=== PATIENT | male | born 1965 | race Caucasian/White ===

== ENCOUNTER 2020-10-05 10:45 | Emergency (ER) | payer OTHER ==
[~2020-10-05 10:45] MED LIST: ACETAMINOPHEN325 MG PO; ASPIRIN CHEWABL81 MG PO; CLARITIN10 MG PO
[2020-10-05 11:12] LABS: BASOPHIL 0.6 % (0-2); EOSINOPHIL 2.2 % (0-5); HCT 43.6 % (42.0-52.0); LYMPHOCYTE 35.7 % (15-48); MCH 30.9 pg (25.0-31.0); MCHC 34.4 g/dL (32.0-36.0); MCV 89.9 fL (78.0-100.0); MPV 9.1 fL (6.0-9.5); NEUTROPHIL 54.3 % (41-80); NRBC 0; PLT 237 K/uL (150-400); RBC 4.85 M/uL (4.70-6.00)
[2020-10-05 11:29] LABS: INR 1.03 (0.9-1.2); PROTHROMBIN TIME 12.8 SECONDS (11.4-13.6); PTT 27.4 SECONDS (22.2-34.7)
[2020-10-05 11:52] LABS: ALBUMIN 3.7 g/dL (3.4-5.0); BILIRUBIN - TOTAL 0.5 mg/dL (0.2-1.0); BUN/CREAT RATIO (CALC) 12.3 RATIO; CREATININE 1.06 mg/dL (0.67-1.17); GLOBULIN (CALCULATION) 3.1 g/dL; POTASSIUM 4.5 mmol/L (3.5-5.1); TOTAL PROTEIN 6.8 g/dL (6.4-8.2)
[2021-03-06] MEDS ORDERED: PRILOSEC20 MG PO (10:56)
[2021-03-06] MEDS ORDERED: MOTRIN600 MG PO (10:56)
== END 2020-10-05 14:19 | disposition home or self-care (01) ==
LOC: FER 10:45
PROVIDERS: Emergency Medicine
DX: R07.89 Other chest pain (principal)
CPT/HCPCS: 36415; 71045; 80053; 84484; 85025; 85610; 85730; 93005

== ENCOUNTER 2021-02-06 08:20 | Emergency (ER) | payer OTHER ==
[2021-02-06 09:55] LABS: BILIRUBIN NEGATIVE (NEGATIVE); BLOOD NEGATIVE Ery/uL (NEGATIVE); CLARITY CLEAR (CLEAR); COLOR YELLOW (YELLOW); GLUCOSE (U) NORMAL (NORMAL); LEUKOCYTES NEGATIVE Leu/uL (NEGATIVE); NITRITE NEGATIVE (NEGATIVE); PROTEIN NEGATIVE (NEGATIVE); SPECIFIC GRAVITY >=1.030 (1.001-1.030); UROBILINOGEN 0.2 mg/dL (0.2-1.0)
[2021-02-06 09:55] LABS: BASOPHIL 0.4 % (0-2); EOSINOPHIL 2.2 % (0-5); HCT 40.7 % (42.0-52.0); HGB 14.7 g/dl (13.2-18.0); LYMPHOCYTE 26.9 % (15-48); MCH 32.2 pg (25.0-31.0); MCHC 36.1 g/dL (32.0-36.0); MCV 89.1 fL (78.0-100.0); MONOCYTE 7.5 % (0-12); MPV 9.3 fL (6.0-9.5); NEUTROPHIL 62.6 % (41-80); NRBC 0; PLT 246 K/uL (150-400); RBC 4.57 M/uL (4.70-6.00); RDW 12.1 % (11.5-14.0); WBC 6.8 K/uL (4.0-10.5)
[2021-02-06 10:13] LABS: CREATININE 0.91 mg/dL (0.67-1.17)
[2021-02-06 10:14] LABS: ALBUMIN 3.7 g/dL (3.4-5.0); BILIRUBIN - TOTAL 0.3 mg/dL (0.2-1.0); GLOBULIN (CALCULATION) 3.7 g/dL; POTASSIUM 4.1 mmol/L (3.5-5.1); TOTAL PROTEIN 7.4 g/dL (6.4-8.2)
[2021-02-06] MEDS ORDERED: CIPRO500 MG PO (11:26)
[2021-02-06] MEDS ORDERED: METRONIDAZOLE500 MG PO (11:26)
[2021-03-06] MEDS ORDERED: PRILOSEC20 MG PO (10:56)
[2021-03-06] MEDS ORDERED: MOTRIN600 MG PO (10:56)
== END 2021-02-06 11:51 | disposition home or self-care (01) ==
LOC: FER 08:20
PROVIDERS: Emergency Medicine
DX: K52.9 Noninfective gastroenteritis and colitis, unspecified (principal)
CPT/HCPCS: 36415; 80053; 81003; 82150; 83690; 85025; Q9967

== ENCOUNTER → 2021-03-10 | Day surgery (SDC) | payer OTHER ==
[~2021-03-10] VITALS: Ht 182.9 cm; Wt 105.3 kg
[~2021-03-10] MED LIST changes: +CIPRO500 MG PO; +METRONIDAZOLE500 MG PO; +MOTRIN600 MG PO; +PRILOSEC20 MG PO
== END | disposition home or self-care (01) ==
LOC: FAS 07:07
DX: K52.9 Noninfective gastroenteritis and colitis, unspecified (principal); K57.30 Diverticulosis of large intestine without perforation or abscess without bleeding; K21.9 Gastro-esophageal reflux disease without esophagitis; K31.9 Disease of stomach and duodenum, unspecified; K44.9 Diaphragmatic hernia without obstruction or gangrene; Z87.891 Personal history of nicotine dependence; Z79.82 Long term (current) use of aspirin; Z79.899 Other long term (current) drug therapy
CPT/HCPCS: J2704; J7120